=== PATIENT | male | born 1970 | race Caucasian/White ===

== ENCOUNTER → 2017-06-06 | Outpatient (CLI) | payer BC ==
[~2017-06-06] MED LIST: IOPAMIDOL 370 76% 100 ML VIAL. IV ONE
--- NOTE | 2017-06-06 14:34 | KCIC ---
CT HEAD WO/W CONTRAST dated 06/06/2017 2:00 PM Indication: Dizziness, numbness to left side of body, symptoms for 2 weeks dizziness Comparison: No comparison is available. Technique: Contiguous axial imaging of the head was performed with and without the administration of 75 cc Omnipaque 300. One or more of the following individualized dose reduction techniques were utilized for this examination: 1. Automated exposure control 2. Adjustment of the mA and/or kV according to patient size 3. Use of iterative reconstruction technique Findings: Precontrast imaging shows normal caliber ventricles and sulci for patient's age. No midline shift or mass effect. There is a focal zone of low density within the high left parietal lobe near the vertex. Minimal additional spotty foci of low density in the deep/subcortical periventricular white matter. No hemorrhage or extra-axial collection. Posterior fossa and brainstem unremarkable. Postcontrast imaging shows no abnormal enhancement. The dural venous sinuses are grossly patent. Visualized paranasal sinuses and mastoid air cells are grossly clear. There are small mucous retention cysts or polyps at the inferior right maxillary sinus. No apparent calvarial abnormality. IMPRESSION: 1. No evidence of acute intracranial hemorrhage or mass. No abnormal enhancement. 2. Focal zone of low density at the high left parietal lobe, without appreciable enhancement. This is nonspecific but could be related to subacute to remote ischaemia. Demyelinating processes considered less likely. Electronically signed by: Rehan Gomez MD (06/06/2017 2:31 PM) [id number]
== END | disposition home or self-care (01) ==
LOC: KCIC CT 14:01
PROVIDERS: ATTEND Family Medicine
DX: R42 Dizziness and giddiness (principal); R20.0 Anesthesia of skin
CPT/HCPCS: 70470; Q9967